=== PATIENT | female | born 1960 | race Caucasian/White ===

== ENCOUNTER 2020-05-26 06:31 | Day surgery (SDC) | payer BC, SELFPAY ==
--- NOTE | 2020-05-24 09:32 | HO.ANESPROP2 ---
HPI - Anesthesia Eval Consult details Narrative: 60yo F for Screening Colonoscopy PMFSH Past Medical History Medical History Acoustic neuroma Hearing loss Schatzki's ring Tubular adenoma Surgical History Surgical History H/O craniotomy H/O mastoidectomy History of mandibular surgery Narrative Narrative: Acoustic neuroma s/p craniotomy/mastoid obliteration 04/2018 Meds Allergies Allergy/AdvReac Type Severity Reaction Status Date / Time No Known Allergies Allergy Verified 05/23/20 10:24 Home Medications Medication Instructions Recorded Confirmed Type No Known Home Meds 05/25/20 05/25/20 History Exam Exam Date and Time: May 24, 2020 0932 Assessment and Plan Assessment Anesthesia Assessment: Chart Reviewed (05/24/20 )
[2020-05-26 06:44] VITALS: BP 130/68; PULSE 74; RESP 18; TEMP 36.5; O2SAT 99; BMI 22.6
[2020-05-26 08:15] VITALS: BP 120/57; PULSE 64; RESP 18; TEMP 36.3; O2SAT 97
[2020-05-26 08:27] VITALS: BP 115/55; PULSE 59; RESP 18; O2SAT 96
[2020-05-26 08:37] VITALS: BP 116/52; PULSE 58; RESP 18; O2SAT 99
--- NOTE | 2020-05-26 10:44 | OP_ITS ---
SURGEON: Jun Lala MD INDICATIONS: Colon cancer screening. PREOPERATIVE DIAGNOSIS: POSTOPERATIVE DIAGNOSIS: PROCEDURE PERFORMED: Colonoscopy to the terminal ileum. ESTIMATED BLOOD LOSS: COMPLICATIONS: ANESTHESIA: ASSISTANTS: SPECIMENS: MEDICATIONS: Versed 4 mg IV and fentanyl 150 mcg IV. DESCRIPTION OF PROCEDURE: History and physical performed. The risks and benefits of the procedure were explained to the patient. Informed consent was obtained. The patient was placed in the left lateral decubitus position. A digital rectal exam was performed and was found to be normal. The Olympus pediatric video colonoscope was introduced into the rectum and advanced to the cecum without difficulty. The cecum was identified by transillumination, palpation, and identification of ileocecal valve. Examination was performed and the scope was removed. She tolerated the procedure well and was taken to recovery area in stable condition. FINDINGS: The terminal ileum was normal. The visualized colonic mucosa was normal. The quality of the prep was good. No polyps were identified. Retroflexed examination showed small internal hemorrhoids. IMPRESSION: Negative screening colonoscopy. RECOMMENDATIONS: 1. Follow up as needed. 2. Repeat colonoscopy is recommended in 5 years because of family history and personal history of colon polyps. MD CHICHO Kong/LIDYA / [phone]
== END 2020-05-26 09:15 | disposition home or self-care (01) ==
LOC: HO.SSS 06:33
PROVIDERS: PCP Family Medicine; Visit Provider Internal Medicine Gastroenterology
PROC: 0DJD8ZZ Inspection of Lower Intestinal Tract, Via Natural or Artificial Opening Endoscopic (ICD-10-PCS; CPT 45378; principal; 2020-05-26 07:30)
DX: Z12.11 Encounter for screening for malignant neoplasm of colon (principal); Z86.010 Personal history of colon polyps; Z80.0 Family history of malignant neoplasm of digestive organs; K57.30 Diverticulosis of large intestine without perforation or abscess without bleeding; Z79.1 Long term (current) use of non-steroidal anti-inflammatories (NSAID)
CPT/HCPCS: 45378; J0461; J2250; J3010

== ENCOUNTER 2022-04-04 07:50 | Outpatient (REF) | payer BC, SELFPAY ==
--- NOTE | ~2022-04-04 | MM_ITS ---
EXAMINATION: MM DIAGNOSTIC DIGITAL BREAST TOMOSYNTHESIS, BILATERAL US DIAGNOSTIC ULTRASOUND BREAST, LEFT CLINICAL INFORMATION: Due for yearly. Patient notes tender erythematous area lower left areola margin, substantially improved following course of antibiotics. No discharge. The lifetime risk of breast cancer based on the Tyrer-Cuzick Model is 9%. COMPARISON: Mammography: 07/02/2019, 09/23/2014 TECHNIQUE: Digital breast tomosynthesis is performed in both the craniocaudal and mediolateral oblique views along with computer-aided detection (CAD). Synthesized 2D images are generated from the tomosynthesis. Ultrasound left breast is targeted to the area of clinical concern inferior periareolar and subareolar region. Grayscale imaging and color Doppler are performed without and with harmonics. FINDINGS: There are scattered areas of fibroglandular density (ACR BI-RADS breast composition Category b). Parenchymal pattern is similar to prior exams. No developing density or interval mass or architectural abnormality. No abnormal calcifications. Low right axillary tail nodes stable. There is no skin thickening or coarsening of the Maxime's ligaments. Ultrasound left breast demonstrates spindle-shaped hypoechoic intradermal area at site of clinical concern 6:00 areolar margin measuring approximately 4 mm in thickness by 2.2 cm across. There is some scant peripheral color flow. No cystic component and no subdermal extension. No focal duct ectasia. Results are discussed with the patient at time of visit. Patient notes that the left breast symptoms are decreased since antibiotics. The intradermal finding is probable benign residual dermal inflammatory changes. Patient may be followed clinically as needed with repeat imaging at next annual exam, earlier if clinical symptoms warrant short-term follow-up. MM/MM tomosynthesis diagnostic BI IMPRESSION: -No mammographic evidence of malignancy. -Intradermal hypoechoic area at site of clinical concern 6:00 periareolar left breast measuring 4 mm in thickness by 2.2 cm across. No subdermal extension. ASSESSMENT: BI-RADS 2: Benign RECOMMENDATION: 1. Resolving inflammatory changes left breast may be followed clinically as needed. 2. Otherwise, routine annual screening mammography. This patient's information was entered into a reminder system with a target due date for their next mammogram.
== END 2022-04-04 07:51 | disposition home or self-care (01) ==
LOC: HO.MAMMO 07:50
PROVIDERS: Visit Provider Family Medicine
DX: N64.4 Mastodynia (principal)
CPT/HCPCS: 76642; 77062; 77066

== ENCOUNTER 2023-08-13 07:19 | Outpatient (REF) | payer BC, SELFPAY ==
--- NOTE | ~2023-08-13 | MM_ITS ---
EXAMINATION: MM SCREENING DIGITAL BREAST TOMOSYNTHESIS, BILATERAL CLINICAL INFORMATION: Screening. Asymptomatic. COMPARISON: Mammography: This study is compared with prior exams dating back to 2015. TECHNIQUE: Digital breast tomosynthesis is performed in both the craniocaudal and mediolateral oblique views along with computer-aided detection (CAD). Synthesized 2D images are generated from the tomosynthesis. FINDINGS: There are scattered areas of fibroglandular density (ACR BI-RADS breast composition Category b). There are no significant masses, abnormal calcifications, or other abnormalities. MM/MM tomosynthesis screening BI IMPRESSION: No mammographic evidence of malignancy. ASSESSMENT: BI-RADS BI-RADS 1 - Negative RECOMMENDATION: Routine annual mammography screening. 1 year F/U This examination should not preclude the clinical evaluation of a suspicious palpable abnormality. This patient's information was entered into a reminder system with a target due date for their next mammogram.
== END 2023-08-13 07:20 | disposition home or self-care (01) ==
LOC: HO.MAMMO 07:19
PROVIDERS: PCP Family Medicine; Visit Provider Family Medicine
DX: Z12.31 Encounter for screening mammogram for malignant neoplasm of breast (principal)
CPT/HCPCS: 77063; 77067

== ENCOUNTER → 2023-08-13 07:30 | Outpatient (BNV) | payer BC, SELFPAY | PROVIDERS: PCP Family Medicine; Visit Provider Radiology Diagnostic Radiology | DX: Z12.31 Encounter for screening mammogram for malignant neoplasm of breast (principal) | CPT/HCPCS: 77063; 77067 ==

== ENCOUNTER 2025-04-06 08:28 | Outpatient (REF) | payer BC, MEDICARE, SELFPAY ==
--- OUTSIDE RECORDS SUMMARY | 2024-10-27 05:20 | XMS_ITS ---
Author Organization [facility] Address [address] [place] [phone] Care Team Providers Care Model Builder Name Role Phone QUIRINO LEA M.D. Primary Care Provider Mindi Lala Jr, Jun Ledesma REASON FOR VISIT Patient presents today for a discuss colonoscopy due in 05/2025 Encounters Encounter Location Date Provider Diagnosis [facility] [address] [address] 10/27/2024 Jun Lala Jr Plan Of Treatment Next Appt Details Provider Name:Jun wagner Jr, 07/12/2025 07:30:00 AM, [address] [place] [address] , [place], [place], [phone], Progress Notes * BANG ROMO EDOB: [birth year] (64 yo F)Acc No.[id number]:10/27/2024 Progress Notes Patient: Randolph RENDON BANG Napoleon Provider: Luis Carlos Lala MD :1960 A ge:64 Y S ex:Female Date:10/27/2024 Address:[address] [place] [address] [id number] Pcp:QUIRINO LEA M.D. Subjective: * Chief Complaints: * 1 . Patient presents today for a discuss colonoscopy due in 05/2025. * Medical History: Objective: * Vitals: Assessment: Plan: * Treatment: * * The named appointment provid er may or may not be the originator of this progress note, and it is not deemed complete until electronically signed by the appointment provider. Sign off status: Pending * Provider: Luis Carlos Lala MD Date: 0 10/27/2024 Generated for Dominic velazquez/Brittney/Amber on: 0 04/06/2025 08:41 AM EDT
--- NOTE | ~2025-04-06 | MM_ITS ---
EXAMINATION: MM SCREENING DIGITAL BREAST TOMOSYNTHESIS, BILATERAL CLINICAL INFORMATION: Screening. Asymptomatic. COMPARISON: Comparison made to multiple prior, most recent August 13, 2023, and most remote September 23, 2014. TECHNIQUE: Digital breast tomosynthesis is performed in both the craniocaudal and mediolateral oblique views along with computer-aided detection (CAD). FINDINGS: BREAST COMPOSITION: There are scattered areas of fibroglandular density (ACR BI-RADS breast composition Category b). BILATERAL BREASTS: No significant masses, suspicious calcifications or other abnormalities are seen in either breast. MM/MM tomosynthesis screening BI IMPRESSION: BILATERAL BREASTS: Negative, no mammographic evidence of malignancy. Normal interval follow-up is recommended in 12 months. ASSESSMENT: BI-RADS 1 - Negative RECOMMENDATION: Routine annual mammography screening. FOLLOW-UP: 1 year F/U This examination should not preclude the clinical evaluation of a suspicious palpable abnormality. This patient's information was entered into a reminder system with a target due date for their next mammogram. Electronically signed by: Live Lopez MD 04/11/2025 07:44 PM EDT
--- OUTSIDE RECORDS SUMMARY | 2025-04-06 08:41 | XMS_ITS | Patient Health Record ---
Author Organization [facility] Address [address] [place] [address] Care Team Providers Care Pastoral Ministries Professor Name Role Phone Orly Villa Primary Care Provider Josette Israel Unavailable [phone] Allergies No Known Allergies Results Component Value Reference Range Notes MRI BRAIN (INTERNAL AUDITORY CANAL) WITH AND WITHOUT CONTRAST Reviewed date:06/04/2024 01:50:48 PM Interpretation: Performing Lab: Notes/Report: MRI BRAIN (INTERNAL AUDITORY CANAL) WITH AND WITHOUT CONTRAST Referring clinician's provided indication for this examination in [facility]: * Brain mass or lesion; Acoustic neuroma status postsurgery and RT TECHNIQUE: Multi-sequence, multi-planar MRI of the brain including high resolution images of the temporal bones was performed before and after intravenous contrast. COMPARISON: MRI IAC June 02, 2023 FINDINGS: Internal Auditory Canals, Cerebellopontine Angles, and Intracranial 7th and 8th Nerve Complexes: There is postoperative change for left translabyrinthine craniotomy similar the prior study. The 10 x 13 x 14 mm enhancing nodule within the left CP angle cistern with mass effect on the overlying the left trigeminal nerve and lateral paco appears similar the prior study. Inner Ear Structures: Preserved signal in the right membranous labyrinth. No MRI evidence for an inner ear anomaly. Brain Parenchyma: There is encephalomalacia within the left lateral cerebellar hemisphere and middle cerebellar peduncle. There are scattered foci of T2 hyperintensity in the white matter, likely a manifestation of mild chronic small vessel disease similar the prior study. There is an old right frontal ventriculostomy catheter tract. No intra-axial mass lesion or abnormal enhancement. Ventricular System and Extra-Axial Spaces: Normal. No evidence of midline shift or hydrocephalus. Miscellaneous: None. IMPRESSION: 1. 10 x 14 mm residual left CP angle vestibular schwannoma component appears unchanged from June 02, 2023. Interpreted by: Graeme Patel DO Signed by: Graeme Patel DO 05/27/24 CC Recipients: Nazanin Fritz MD - In Basket (authorizing provider) Final result ROUTINE MRI BRAIN + IAC WWO. P.s. yearly follow up h/o acoustic neuroma, h/o surgery and RT. MRI BRAIN (INTERNAL AUDITORY CANAL) WITH AND WITHOUT CONTRAST Referring clinician' s provided indication for this examination in [facility]: * Brain mass or lesion; Acoustic neuroma status postsurgery and RT TECHNIQUE: Multi-seq uence, multi-planar MRI of the brain including high resolution images of the temporal bones was performed before and after intravenous contrast. COMPARISON: MRI IAC June 02, 2023 FINDINGS: Internal Auditory Ca nals, Cerebellopontine Angles, and Intracranial 7th and 8th Nerve Complexes: There is postoperative change for left translabyrinthine craniotomy similar the prior study. The 10 x 13 x 14 mm enhancing nodule within the left CP angle cistern with mass effect on the overlying the left trigeminal nerve and lateral paco appears similar the prior study. Inner Ear Structures : Preserved signal in the right membranous labyrinth. No MRI evidence for an inner ear anomaly. Brain Parenchyma: Th ere is encephalomalacia within the left lateral cerebellar hemisphere and middle cerebellar peduncle. There are scattered foci of T2 hyperintensity in the white matter, likely a manifestation of mil d chronic small vessel disease similar the prior study. There is an old right frontal ventriculostomy catheter tract. No intra-axial mass lesion or abnormal enhancement. Ventricular System a nd Extra-Axial Spaces: Normal. No evidence of midline shift or hydrocephalus. Miscellaneous: None. IMPRESSION: 1. 10 x 14 mm residu al left CP angle vestibular schwannoma component appears unchanged from June 02, 2023. Electronically Lisa d by: Graeme Patel MD on 05/27/2024 11:19 AM Interpreted by: Graeme Patel DO Signed by: Graeme Patel DO 05/27/24 CC Recipients: Nazanin Fritz MD - In Basket (authorizing provider) Final result ROUTINE MRI BRAIN + IAC WWO. P.s. yearly follow up h/o acoustic neuroma, h/o surgery and RT. Reason For Referral No Information Immunizations Vaccine Route Administration Date Status Comme nts TDAP history Unknown 10/30/2018 Administered Flu Vaccine; History Unknown 10/30/2018 Administered COVID-19 Vaccine (Moderna), History Unknown 11/20/2020 Administered COVID-19 Vaccine (Moderna), History Unknown 12/18/2020 Administered COVID-19 Vaccine (Moderna), History Unknown 06/28/2021 Administered COVID-19 Vaccine (Moderna), History Unknown 12/13/2021 Administered Covid Vac Bivalent Moderna,History Unknown 06/27/2022 Administered SHINGRIX PURCHASED IM Intramuscular 10/23/2023 Administere d SHINGRIX PURCHASED IM Intramuscular 07/01/2024 Administere d Social History Tobacco Use: Social History Observation Description Date Details (start date - stop date) Never Smoker NA - NA Smoking Smart Form: Question Answer Notes Are you a: nonsmoker Problems Problem Type SNOMED Code ICD Code Onset Dates Problem Status W/U Status Risk Notes Problem Hyperlipidemia (85785645) Hyperlipidemia, unspecified (E78.5) Active confirmed Problem Melanoma in situ of upper limb (796139193) 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, 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) Active confirmed Problem Benign neoplasm of cranial nerve (31858132) 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) Active confirmed Problem Stricture of esophagus (91186083) Esophageal obstruction (K22.2) Active confirmed Problem Menopause (167497709) Menopausal and female climacteric states (N95.1) Active confirmed Problem Osteoporosis (75119454) Osteoporosis NOS (M81.0) Active confirmed Encounters Encounter Location Date Provider Diagnosis [facility] [address] [place] [address] 07/01/2024 Josette Israel Encounter for immunization Z23 Assessments Encounter Date Diagnosis (ICD Code) Assessment Notes Treatment Notes Treatment Clinical Notes Section Notes 07/01/2024 Encounter for immunization (ICD-10 - Z23) shingrix Plan Of Treatment Pending Test Test Name Order Date Bone density 06/17/2019 PAP, cervical; HPV Hybrid Capture High R isk DNA Probe any Dx 01/31/2023 Mammogram Diagnostic, Bilateral with Ult rasound Breast Axillary, RIGHT 04/03/2022 LIPID PANEL 04/02/2024 HSCRP 01/31/2023 COMPREHENSIVE METABOLIC PANL 10/30/2018 COMPREHENSIVE METABOLIC PANL 01/31/2023 COMPREHENSIVE METABOLIC PANL 11/28/2021 LIPID PANEL 01/31/2023 LIPID PANEL 11/28/2021 LIPID PANEL 10/30/2018 TSH WITH REFLEX TO T4 11/28/2021 TSH WITH REFLEX TO T4 10/30/2018 TSH WITH REFLEX TO T4 01/31/2023 Vitamin D25 OH 11/28/2021 Vitamin D25 OH 10/30/2018 CBC 11/28/2021 CBC AUTO DIFF 10/30/2018 CBC AUTO DIFF 01/31/2023 Dexa Bone Density (Axial) 01/31/2023 DEXA bone scan 11/28/2021 CCOV19 03/28/2020 DEXA Bone density 01/09/2024 Next Appt Details Provider Name:Josette bryan, 04/12/2025 01:30:00 PM, [address], [place], [address], Insurance Providers Payer Name Payer Address Payer Phone Subscriber Number Group Number Insured Name Patient Relationship to Insured Coverage Start Date Coverage End Date BC PPO [address] [place] [address] [id number] BANG ROMO Self - patient is the insured Medical (General) History Medical History History ICD Code acoustic neuroma, 8th crania l nerve 2006--presented w hearing loss ([facility]ucky Gunderson neuro surg [facility]anin Samuels On[facility] [place]) COVID february 2022 Shatzki's ring (Spike) C scopes q 5 ys due to fam hx (Spike) . Grade C esophagitis per last endocopy 20 20 [facility]. Hx of infertility treatment melanoma L arm, [facility] (2023) Surgical History Surgery Date(Month/Year) Removal of staged melignant left arm melanoma, left groin graft, [place] [facility] [place] craniotomy on large acoustic neuroma [facility] [place] Hospitalization History Reason Date(Month/Year) mastoid obliteration 05/12/2018 craniotom on large acoustic neuroma [facility] [place]
--- OUTSIDE RECORDS SUMMARY | 2025-04-06 08:41 | XMS_ITS | Encounter Summary ---
Author Organization [facility] Address [address] [place] [address] Phone Care Team Providers Care Tracer Bullet Section Supervisor Name Role Phone Orly Villa MD Primary Care Provider + Singh Knapp MD Unavailable [phone] Orly Main MD Unavailable [phone] Andrzej Gunderson MD Unavailable Singh Knapp MD Unavailable [phone] Encounter Details Date Type Department Care Team (Late st Contact Info) Description 06/19/2022 Procedure Pass [address] [address] Social History Tobacco Use Types Packs/Day Years Used Date Smoking Tobacco: Never Smokeless Tobacco: Never Alcohol Use Standard Drinks/Week Comments Yes 0 (1 standard drink = 0.6 oz pur e alcohol) 1 per month Comments No Sex and Gender Information Value Date Recorded Sex Assigned at Not on file Legal Sex Female 3:32 PM EDT Gender Identity Not on file Sexual Orientation Not on file documented as of this encounter Plan of Treatment Upcoming Encounters Date Type Department Care Team (Late st Contact Info) Description 06/17/2024 Procedure Pass [address] [address] 06/09/2025 7:40 AM EDT Appointment [address] [address] Nazanin Fritz MD [address] [place] [address] [email or web address] 06/22/2025 10:00 AM EDT Appointment [facility] [place] [facility] [address] [place] [address] Nazanin Fritz MD [address] [place] [address] [email or web address] 06/23/2025 9:00 AM EDT Office [place] [facility] [place] [facility] [address] 9th [address], [address] [place] [address] Andrzej Gunderson MD [address] [place], [place] [id number] [address] [email or web address] 06/23/2025 11:15 AM EDT Office Visit [facility] [place] [address] [facility] 2nd [place] [address] Josef Ye MD [address] [place] [address] [email or web address] 06/28/2025 8:00 AM EST Office Visit [facility] [address] 7th [address], [address] [place] [address] Charles Kat MD [address] [facility] [address] [place] [address] [email or web address] documented as of this encounter Visit Diagnoses Not on filedocumented in this encounter Care Teams Tracer Bullet Section Supervisor Relationship Specialty Start Date End Date Orly Villa MD [address] [place] [id number] [email or web address] PCP - General Family Medicine 05/10/21 Singh Knapp MD [address] [place] [phone] [email or web address] Insurance Assigned Provider 11/29/23 06/28/24 Orly Main MD [address] [place] [phone] Dermatology 11/16/23 Andrzej Gunderson MD [address] [place] [address] [email or web address] Neurosurgery 11/18/23 Singh Knapp MD [address] [place] [address] [email or web address] Insurance Assigned Provider 11/29/23 07/03/24 documented as of this encounter Additional Source Comments The information contained in this document represents components of the legal health record. It is not the complete legal health record.[facility]
== END 2025-04-06 08:29 | disposition home or self-care (01) ==
LOC: HO.MAMMO 08:28
PROVIDERS: PCP Family Medicine; Visit Provider Family Medicine
DX: Z12.31 Encounter for screening mammogram for malignant neoplasm of breast (principal)
CPT/HCPCS: 77063; 77067

== ENCOUNTER → 2025-04-06 08:45 | Outpatient (BNV) | payer BC, MEDICARE, SELFPAY | PROVIDERS: PCP Family Medicine; Visit Provider Radiology Body Imaging | DX: Z12.31 Encounter for screening mammogram for malignant neoplasm of breast (principal) | CPT/HCPCS: 77063; 77067 ==